=== PATIENT | male | born 1990 | race Caucasian/White ===

== ENCOUNTER → 2017-08-24 | Outpatient (CLI) | payer SELFPAY ==
--- NOTE | 2017-08-24 15:24 | P.HPBAR ---
Bariatric H&P - History & Physicial H&P Date: 08/24/17 History & Physicial: Visit/CC: Patient initial contact: Initial weight: Initial weight in pounds: Height: Initial BMI: Last weight: Current weight: Current weight in pounds: Current BMI: [place] body weight (based on NIH guidelines): Excess body weight loss: The patient is a 26 year-old M who presents for Bariatric Assessment. Patient presents today for lab band follow. He has not been seen in several years. Patient states that he has gained weight. He has a loss of restriction. Past Medical History Past Medical History: Asthma History of Any Multi-Drug Resistant Organisms: None Reported Past Surgical History: Bariatric Surgery Additional Past Surgical History / Comment(s): gastric lap band 2010 Past Anesthesia/Blood Transfusion Reactions: No Reported Reaction Additional Past Anesthesia/Blood Transfusion Reaction / Comm: NO transfusions to date Past Psychological History: No Psychological Hx Reported Smoking Status: Never smoker Past Alcohol Use History: Rare Past Drug Use History: None Reported Surgical - Exam - General well developed, no distress - Eyes PERRL - ENT normal pinna - Abdomen Abdomen: soft, non tender Bariatric Assessment & Plan Plan: The patient LAP-BAND was adjusted. He had 1 mL added to his band. He appears to have a leak of his LAP-BAND port. The patient's lap band fluid appeared to be less once it was instilled into the port. The patient states he has no insurance currently. I went over the procedure port placement with the patient. He'll contact me wish to have his port replaced. Bariatric Checklist Checklist: Plan: Checklist: EGD: 1. Hiatal hernia: 2. H. Pylori: HgbA1c: Vitamin D: Smoking: Never smoker Primary care physician referral: Psychiatry clearance: Cardiology clearance: Sleep study: Diet journal: VTE risk score: VTE risk level: Rehab needs at discharge:
[2017-08-24 15:29] VITALS: BP 126/70; PULSE 91; RESP 14; TEMP 98.2; BMI 61.4
== END | disposition home or self-care (01) ==
LOC: BARWHC3 14:51
PROVIDERS: ATTEND Surgery
DX: Z09 Encounter for follow-up examination after completed treatment for conditions other than malignant neoplasm (principal); R63.5 Abnormal weight gain; J45.909 Unspecified asthma, uncomplicated; Z98.84 Bariatric surgery status
CPT/HCPCS: 99202

== ENCOUNTER → 2020-02-13 | Outpatient (CLI) | payer BC ==
[2020-02-13 13:21] VITALS: BMI 67.4
[2020-02-13 13:24] VITALS: BP 136/86; PULSE 89; TEMP 98.3
--- NOTE | 2020-02-13 14:44 | P.HPBAR ---
Bariatric H&P - History & Physicial H&P Date: 02/13/20 History & Physicial: Visit/CC: follow up Patient initial contact: Initial weight: 208.652 kg Initial weight in pounds: 460.00 Height: 5 ft 6 in Initial BMI: 74.2 Last weight: 235 pounds. April 2015 Current weight: 189.602 kg Current weight in pounds: 418.00 Current BMI: 67.4 [place] body weight (based on NIH guidelines): 64.41 kg Excess body weight loss: 13.2% The patient is a 29 year-old M who presents for Bariatric Assessment. Patient presents today for bariatric follow-up. Patient has a LAP-BAND with a known broken port. He skin approximately 150 pounds his last visit. Patient is requesting conversion to sleeve gastrectomy and removal of LAP-BAND device. Past Medical History Past Medical History: Asthma History of Any Multi-Drug Resistant Organisms: None Reported Past Surgical History: Bariatric Surgery Additional Past Surgical History / Comment(s): gastric lap band 2010 Past Anesthesia/Blood Transfusion Reactions: No Reported Reaction Additional Past Anesthesia/Blood Transfusion Reaction / Comm: NO transfusions to date Past Psychological History: No Psychological Hx Reported Smoking Status: Never smoker Past Alcohol Use History: Rare Past Drug Use History: None Reported Surgical - Exam Vital Signs Temp Pulse BP 98.3 F 89 136/86 02/13/20 13:12 02/13/20 13:12 02/13/20 13:12 - General well developed, well nourished, no distress - Eyes PERRL - ENT normal pinna - Neck no masses - Respiratory normal expansion - Cardiovascular Rhythm: regular - Abdomen Abdomen: soft, non tender Bariatric Assessment & Plan Plan: Morbid obesity. Patient has a malfunctioning LAP-BAND with broken port. Patient requesting conversion sleeve yesterday. Patient be scheduled for EGD and an information seminar. He'll follow-up in 4 weeks. Bariatric Checklist Checklist: Plan: Checklist: EGD: 1. Hiatal hernia: 2. H. Pylori: HgbA1c: Vitamin D: Smoking: Never smoker Primary care physician referral: Dr. Woodard Psychiatry clearance: Cardiology clearance: Sleep study: Diet journal: VTE risk score: VTE risk level: Rehab needs at discharge:
== END | disposition home or self-care (01) ==
LOC: BARWHC3 12:51
PROVIDERS: ATTEND Surgery
DX: K31.89 Other diseases of stomach and duodenum (principal); E66.01 Morbid (severe) obesity due to excess calories; Z68.44 Body mass index [BMI] 60.0-69.9, adult
CPT/HCPCS: 99211

== ENCOUNTER 2020-06-28 09:34 | Day surgery (SDC) | payer BC ==
[2020-06-25 18:09] VITALS: BMI 59.8
[2020-06-28 10:34] VITALS: TEMP 96.3
[2020-06-28] MEDS: LACTATED RINGERS 1,000 ML IV SCH ×2 (10:38→11:07)
[2020-06-28] MEDS ORDERED: LIDOCAINE 1% (10MG/ML) FOR IV START INTRADERMA ONE (10:38)
[2020-06-28] MEDS ORDERED: PROPOFOL 10 MG/ML 20 ML VIAL IV ONE (11:09)
[2020-06-28] MEDS ORDERED: LIDOCAINE 1% INJ 10MG/ML (20 ML MDV) ONE (11:09)
--- NOTE | 2020-06-28 11:19 | P.GSHP ---
History of Present Illness H&P Date: 06/28/20 Chief Complaint: GERD, morbid obesity The 29-year-old male undergoing workup for sleeve gastric. Patient has completed some GERD. He is morbidly obese BMI of 67. Past Medical History Past Medical History: Asthma Additional Past Medical History / Comment(s): Asthma as child. Recent elevated blood pressure x1. History of Any Multi-Drug Resistant Organisms: None Reported Past Surgical History: Bariatric Surgery Additional Past Surgical History / Comment(s): EGD. Gastric lap band 2010 Past Anesthesia/Blood Transfusion Reactions: No Reported Reaction Additional Past Anesthesia/Blood Transfusion Reaction / Comment(s): (No transfusions to date). Awoke from surgery with broken blood vessels in face. Smoking Status: Never smoker - Past Family History Mother Family Medical History: No Reported History Medications and Allergies Home Medications Medication Instructions Recorded Confirmed Type No Known Home Medications 02/13/20 06/28/20 History Allergies Allergy/AdvReac Type Severity Reaction Status Date / Time Penicillins Allergy Severe Anaphylaxis Verified 06/28/20 10:29 Sulfa (Sulfonamide Allergy Severe Anaphylaxis Verified 06/28/20 10:29 Antibiotics) Surgical - Exam Vital Signs Temp Pulse Resp BP Pulse Ox 96.3 F L 94 20 128/81 97 06/28/20 10:31 06/28/20 10:31 06/28/20 10:31 06/28/20 10:31 06/28/20 10:31 - General well developed, well nourished, no distress - Eyes PERRL - ENT normal pinna - Neck no masses - Respiratory normal expansion - Cardiovascular Rhythm: regular - Abdomen Abdomen: soft, non tender Assessment and Plan Assessment: GERD, morbid obesity. We'll perform EGD.
--- NOTE | 2020-06-28 11:26 | P.OP ---
Date of Procedure: 06/28/20 Preoperative Diagnosis: Morbid obesity, GERD Postoperative Diagnosis: Morbid obesity, antral gastritis Procedure(s) Performed: EGD Anesthesia: MAC Surgeon: Paulo Clark Pathology: other (Antrum) Condition: stable Disposition: PACU Description of Procedure: The patient's placed on the endoscopy table in the lateral position. He received IV sedation. The gastroscope patient oropharynx passed in the esophagus and into the stomach. Scope then placed through the pylorus. The first and second portion duodenum appeared normal. Scope was then brought back the antrum this mildly inflamed. A biopsies performed. The scope was unretroflexed and remainder of the stomach appeared normal. Patient previous gastric LAP-BAND. There was no evidence of any inflammatory change her LAP- BAND. The GE junction was at 47 is. The distal esophagus appeared normal. The proximal esophagus normal. Scope was withdrawn for patient.
[2020-06-28 11:38] VITALS: RESP 16
[2020-06-28 11:56] VITALS: BP 109/74; PULSE 77
== END 2020-06-28 12:08 | disposition home or self-care (01) ==
LOC: ORWHC2ENDO 09:34
PROVIDERS: ATTEND Surgery
DX: K21.9 Gastro-esophageal reflux disease without esophagitis (principal); K29.50 Unspecified chronic gastritis without bleeding; J45.909 Unspecified asthma, uncomplicated; E66.01 Morbid (severe) obesity due to excess calories; Z68.44 Body mass index [BMI] 60.0-69.9, adult; Z98.84 Bariatric surgery status; Z88.0 Allergy status to penicillin; Z88.2 Allergy status to sulfonamides
CPT/HCPCS: 88305; 43239; J2001; J2704

== ENCOUNTER → 2020-07-09 | Outpatient (CLI) | payer BC ==
[2020-07-09 13:33] VITALS: BMI 69.2
[2020-07-09 14:03] VITALS: BP 145/88; PULSE 103; RESP 18; TEMP 98
--- NOTE | 2020-07-09 16:09 | P.HPBAR ---
Bariatric H&P - History & Physicial H&P Date: 07/09/20 History & Physicial: Visit/CC: presurgical visit Patient initial contact: Initial weight: 208.652 kg Initial weight in pounds: 460.00 Height: 5 ft 6 in Initial BMI: 74.2 Last weight: Current weight: 194.591 kg Current weight in pounds: 429.00 Current BMI: 69.2 [place] body weight (based on NIH guidelines): 64.41 kg Excess body weight loss: 9.7% The patient is a 29 year-old M who presents for Bariatric Assessment.patient presents today for presurgical consultation. He has been recently approved for removal of his LAP-BAND conversion sleeve gastrectomy. We went over the risks and benefits of the procedure. He understands the risks and possible gastric injury/perforation bleeding or scarring. Past Medical History Past Medical History: Asthma Additional Past Medical History / Comment(s): Asthma as child. Recent elevated blood pressure x1. History of Any Multi-Drug Resistant Organisms: None Reported Past Surgical History: Bariatric Surgery Additional Past Surgical History / Comment(s): EGD. Gastric lap band 2010 Past Anesthesia/Blood Transfusion Reactions: Postoperative Nausea & Vomiting (PONV) Additional Past Anesthesia/Blood Transfusion Reaction / Comm: (No transfusions to date). Awoke from surgery with broken blood vessels in face. Past Psychological History: No Psychological Hx Reported Smoking Status: Never smoker Past Alcohol Use History: Rare Past Drug Use History: None Reported - Past Family History Mother Family Medical History: No Reported History Surgical - Exam Vital Signs Temp Pulse Resp BP 98 F 103 H 18 145/88 07/09/20 14:00 07/09/20 14:00 07/09/20 14:00 07/09/20 14:00 - General well developed, well nourished, no distress - Eyes PERRL - ENT normal pinna - Neck no masses - Respiratory normal expansion - Cardiovascular Rhythm: regular - Abdomen Abdomen: soft, non tender Bariatric Assessment & Plan Plan: morbid obesity, BMI 69. Patient will be scheduled for removal of LAP-BAND and conversion sleeve gastrectomy Bariatric Checklist Checklist: Plan: Checklist: EGD: 1. Hiatal hernia: 2. H. Pylori: HgbA1c: Vitamin D: Smoking: Never smoker Primary care physician referral: Dr. Woodard Psychiatry clearance: Cardiology clearance: Sleep study: Diet journal: VTE risk score: VTE risk level: Rehab needs at discharge:
== END ==
LOC: BARWHC3 08:57
PROVIDERS: ATTEND Surgery
DX: Z01.818 Encounter for other preprocedural examination (principal); E66.01 Morbid (severe) obesity due to excess calories; J45.909 Unspecified asthma, uncomplicated; Z68.44 Body mass index [BMI] 60.0-69.9, adult; Z98.84 Bariatric surgery status
CPT/HCPCS: 97804; 99211

== ENCOUNTER → 2020-07-10 | Outpatient (CLI) | payer BC ==
[2020-07-10 21:57] LABS: HCT 45.9 % (39.6-50.0); HGB 14.8 g/dL (13.0-17.0); MCH 28.2 pg (27.0-32.0); MCHC 32.2 g/dL (32.0-37.0); MCV 87.6 fL (80.0-97.0); Mean Platelet Volume 11.7 fL (9.5-12.2); Platelet Count 200 X 10*3/uL (140-440); RBC 5.24 X 10*6/uL (4.40-5.60); RDW 12.8 % (11.5-14.5); WBC 8.28 X 10*3/uL (4.50-10.00)
[2020-07-10 23:36] LABS: Albumin 4.2 g/dL (3.80-4.90); Anion Gap 8.1 mmol/L (4.00-12.00); Calcium 9.5 mg/dL (8.7-10.3); Carbon Dioxide 26.9 mmol/L (21.6-31.8); Globulin 2.1 g/dL (1.6-3.3); Non-African American GFR(CKD) 102.7 (60.0-200.0); Potassium 4.7 mmol/L (3.5-5.5); Total Bilirubin 0.5 mg/dL (0.2-1.2); Total Protein 6.3 g/dL (6.2-8.2)
[2020-07-10 23:45] LABS: Folate, Serum 9.5 ng/mL
[2020-07-10 23:46] LABS: Hemoglobin A1C 5.4 % (4.0-6.0)
[2020-07-11 18:25] LABS: Hepatitis A Antibody IgM Non-Reactive (Non-Reactive); Hepatitis B Core IgM Non-Reactive (Non-Reactive); Hepatitis B Surface Antigen Non-Reactive (Non-Reactive); Hepatitis C IgG Antibody Non-Reactive (Non-Reactive)
== END | disposition home or self-care (01) ==
LOC: LABWHC1 12:27
PROVIDERS: ATTEND Surgery
DX: E88.81 Metabolic syndrome and other insulin resistance (principal); E66.01 Morbid (severe) obesity due to excess calories; E55.9 Vitamin D deficiency, unspecified
CPT/HCPCS: 36415; 80053; 80074; 82306; 82607; 82746; 83036; 84425; 85027; 93005

== ENCOUNTER → 2020-08-09 | Outpatient (CLI) | payer BC ==
--- NOTE | 2020-08-10 08:00 | ECHOF ---
Referral Reason:R07.9 chest pain, R94.31 abn ekg MEASUREMENTS -------- HEIGHT: 170.2 cm WEIGHT: 186.4 kg BP: IVSd: 1.0 cm (0.6 - 1.1) LVIDd: 5.1 cm (3.9 - 5.3) LVPWd: 1.1 cm (0.6 - 1.1) IVSs: 1.4 cm LVIDs: 3.8 cm LVPWs: 1.5 cm Ao Diam: 3.2 cm (2.0 - 3.7) LA Diam: 2.9 cm (2.7 - 3.8) MV EXCURSION: 16.399 mm (> 18.000) MV EF SLOPE: 95 mm/s (70 - 150) EPSS: 1.5 cm MV E Mike: 0.68 m/s MV DecT: 182 ms MV A Mike: 0.27 m/s MV E/A Ratio: 2.54 RAP: 5.00 mmHg RVSP: 9.27 mmHg FINDINGS -------- Sinus rhythm. This was a technically difficult study with suboptimal views. The left ventricular size is normal. Left ventricular wall thickness is normal. Overall left vent ricular systolic function is mildly impaired with, an EF between 45 - 50 %. The RV was not well visualized. The left atrium was not well visualized. The right atrium was not well visualized. Lumason used The aortic valve was not well visualized. The mitral valve was not well visualized. The tricuspid valve was not well visualized. The pulmonic valve was not well visualized. There is no pericardial effusion. CONCLUSIONS -------- 1. This was a technically difficult study with suboptimal views. 2. Left ventricular wall thickness is normal. 3. Overall left ventricular systolic function is mildly impaired with, an EF between 45 - 50 %. 4. The left atrium was not well visualized. 5. The aortic valve was not well visualized. 6. The mitral valve was not well visualized. 7. The tricuspid valve was not well visualized. 8. There is no pericardial effusion. [employer] SUPERVISOR: Morenita Logan [facility]
== END | disposition home or self-care (01) ==
LOC: RADECHMAIN 15:08
PROVIDERS: ATTEND Internal Medicine
DX: R94.31 Abnormal electrocardiogram [ECG] [EKG] (principal); R07.9 Chest pain, unspecified
CPT/HCPCS: 93306; Q9950

== ENCOUNTER → 2020-08-27 | Outpatient (CLI) | payer BC ==
[2020-08-27 13:28] LABS: Basophils % (A) 1 %; Eosinophils # (A) 0.1 k/uL (0-0.7); Eosinophils % (A) 2 %; HCT 44.3 % (39.0-53.0); HGB 15.3 gm/dL (13.0-17.5); Lymphocytes # (A) 1.3 k/uL (1.0-4.8); Lymphocytes % (A) 25 %; MCH 29.3 pg (25.0-35.0); MCHC 34.5 g/dL (31.0-37.0); Mean Platelet Volume 8.7; Monocytes # (A) 0.4 k/uL (0-1.0); Monocytes % (A) 7 %; Neutrophils # (A) 3.3 k/uL (1.3-7.7); Neutrophils % (A) 63 %; Platelet Count 178 k/uL (150-450); RBC 5.21 m/uL (4.30-5.90); RDW 13.5 % (11.5-15.5); WBC 5.2 k/uL (3.8-10.6)
[2020-08-27 13:47] LABS: ALT 60 U/L (4-49); AST 43 U/L (17-59); African American GFR (CKD) >90 (>60 ml/min/1.73 sqM); Albumin 4.2 g/dL (3.5-5.0); Alkaline Phosphatase 61 U/L (38-126); Anion Gap 8 mmol/L; Blood Urea Nitrogen 9 mg/dL (9-20); Calcium 9.5 mg/dL (8.4-10.2); Carbon Dioxide 26 mmol/L (22-30); Chloride 106 mmol/L (98-107); Glucose 83 mg/dL (74-99); Non-African American GFR(CKD) >90 (>60 ml/min/1.73 sqM); Potassium 4.3 mmol/L (3.5-5.1); Sodium 140 mmol/L (137-145); Total Bilirubin 0.8 mg/dL (0.2-1.3); Total Protein 6.9 g/dL (6.3-8.2)
== END | disposition home or self-care (01) ==
LOC: LABPAT 11:45
PROVIDERS: ATTEND Surgery
DX: Z01.812 Encounter for preprocedural laboratory examination (principal)
CPT/HCPCS: 36415; 80053; 85025

== ENCOUNTER 2020-08-28 07:45 | Inpatient (IN) | payer BC ==
[~2020-08-28 07:45] MED LIST: CLINDAMYCIN 900 MG in DEXTROSE 5% IN WATER 50 ML IVPB PRN; DEXAMETHASONE SOD PHOSPHATE 4 MG/ML 1 ML VIAL IV ONE; ENOXAPARIN 40 MG/0.4 ML SYRINGE SQ PRN; GENTAMICIN 560 MG in SODIUM CHLORIDE 0.9% 100 ML IVPB PRN; ONDANSETRON 4 MG/2 ML VIAL IVP ONE
[2020-08-28] MEDS ORDERED: LIDOCAINE 1% (10MG/ML) FOR IV START INTRADERMA ONE (09:06)
[2020-08-28] MEDS: LACTATED RINGERS 1,000 ML IV SCH ×2 (09:06→19:51)
[2020-08-28] MEDS ORDERED: SCOPOLAMINE 1.5MG/72HR PATCH TRANSDERM ONE (09:13)
[2020-08-28] MEDS ORDERED: MIDAZOLAM 2 MG/2 ML VIAL IVP ONE (10:10)
[2020-08-28] MEDS ORDERED: fentaNYL (PF) 50 MCG/ML 2 ML AMP IVP ONE (10:18)
--- NOTE | 2020-08-28 10:30 | P.GSHP ---
History of Present Illness H&P Date: 08/28/20 Chief Complaint: Morbid obesity This a 29-year-old male who presents today for removal LAP-BAND conversion sleeve gastrectomy. Patient is a malfunction of his LAP-BAND. He is unable have an adjusted. He is aware the risks of surgery including conversion to the open procedure injury to the stomach liver spleen Past Medical History Past Medical History: Asthma Additional Past Medical History / Comment(s): Asthma as child. Recent elevated blood pressure x1. History of Any Multi-Drug Resistant Organisms: None Reported Past Surgical History: Bariatric Surgery Additional Past Surgical History / Comment(s): EGD. Gastric lap band 2010 Past Anesthesia/Blood Transfusion Reactions: Postoperative Nausea & Vomiting (PONV) Additional Past Anesthesia/Blood Transfusion Reaction / Comment(s): (No transfusions to date). Awoke from surgery with broken blood vessels in face. Smoking Status: Never smoker - Past Family History Mother Family Medical History: No Reported History Medications and Allergies Home Medications Medication Instructions Recorded Confirmed Type No Known Home Medications 02/13/20 08/28/20 History Allergies Allergy/AdvReac Type Severity Reaction Status Date / Time Penicillins Allergy Severe Anaphylaxis Verified 08/24/20 15:59 Sulfa (Sulfonamide Allergy Severe Anaphylaxis Verified 08/24/20 15:59 Antibiotics) Fish Containing Products Allergy Anaphylaxis Verified 08/24/20 15:28 [Fish] grape juice Allergy Anaphylaxis Uncoded 08/24/20 15:28 Surgical - Exam Vital Signs Temp Pulse Resp BP Pulse Ox 97.0 F L 87 16 142/74 95 08/28/20 09:04 08/28/20 09:04 08/28/20 09:04 08/28/20 09:04 08/28/20 09:04 BMI 61 - General well developed ( ) - Eyes PERRL - ENT normal pinna - Neck no masses - Respiratory normal expansion - Cardiovascular Rhythm: regular - Abdomen Abdomen: soft, non tender Assessment and Plan Assessment: Morbid obesity We'll perform of LAP-BAND and conversion sleeve gastrectomy.
[2020-08-28] MEDS ORDERED: ROPIVACAINE 5 MG/ML 30 ML VIAL ONE (10:55)
[2020-08-28] MEDS ORDERED: PROPOFOL 10 MG/ML 20 ML VIAL IV ONE (10:55)
[2020-08-28] MEDS ORDERED: NEOSTIGMINE 1 MG/ML 10 ML VIAL ONE (10:55)
[2020-08-28] MEDS ORDERED: KETAMINE 10 MG/ML 20 ML VIAL ONE (10:55)
[2020-08-28] MEDS ORDERED: MIDAZOLAM 2 MG/2 ML VIAL ONE (10:55)
[2020-08-28] MEDS ORDERED: ROCURONIUM 10 MG/ML (5 ML VIAL) IV ONE (10:55)
[2020-08-28] MEDS ORDERED: LIDOCAINE 1% INJ 10MG/ML (20 ML MDV) ONE (10:55)
[2020-08-28] MEDS ORDERED: GLYCOPYRROLATE 0.2 MG/ML 2 ML VIAL ONE (10:55)
[2020-08-28] MEDS ORDERED: LIDOCAINE 1%-EPI 1:100,000 20 ML VIAL ONE (10:55)
[2020-08-28] MEDS ORDERED: SUCCINYLCHOLINE CHLORIDE VIAL 200 MG/10 ML VIAL IV ONE (10:55)
[2020-08-28] MEDS ORDERED: fentaNYL (PF) 50 MCG/ML 2 ML AMP ONE (10:55)
[2020-08-28] MEDS ORDERED: BUPIVACAINE-EPI 0.5%-1:200,000 10 ML VIAL SQ ONE (11:37)
[2020-08-28] MEDS ORDERED: LACTATED RINGERS 1,000 ML IV ONE (12:10)
[2020-08-28] MEDS ORDERED: SIMETHICONE 40 MG/0.6 ML DROPS 2,000 MG/30 ML BOTTLE PO PRN (12:49)
[2020-08-28] MEDS ORDERED: HYDROcodone/APAP 15 ML SOLUTION PO PRN (12:49)
[2020-08-28] MEDS ORDERED: NALOXONE 0.4 MG/ML 1 ML VIAL IV PRN (12:49)
[2020-08-28] MEDS ORDERED: HYDROmorphone 1 MG/ML 1 ML SYRINGE IVP PRN (12:49)
[2020-08-28] MEDS ORDERED: ONDANSETRON 4 MG/2 ML VIAL IVP PRN (12:49)
[2020-08-28] MEDS ORDERED: diphenhydrAMINE 50 MG/ML 1 ML VIAL IVP PRN (12:49)
--- NOTE | 2020-08-28 12:49 | P.OP ---
Date of Procedure: 08/28/20 Preoperative Diagnosis: Morbid obesity, BMI 61 Postoperative Diagnosis: Morbid obesity, BMI 61 Procedure(s) Performed: Laparoscopic removal LAP-BAND system Laparoscopic sleeve gastrectomy Lysis of adhesions Anesthesia: GENEVIEVE Surgeon: Paulo Clark Estimated Blood Loss (ml): 25 Pathology: other (Stomach) Condition: stable Disposition: PACU Description of Procedure: The patient was placed on the operating room table in the supine position. She received general anesthesia and then was placed in dorsal lithotomy position. Her abdomen was prepped and draped in sterile fashion. The skin incision sites were anesthetized 1% local Xylocaine. And then the skin was incised with an 11 blade in the left lateral positionover the LAP-BAND port site. Using blunt and sharp dissection with cautery the LAP-BAND port was dissected free to pathology. . Using a blade less trocar under direct visualization the peritoneal cavity was entered. The abdomen was insufflated and then a 5 mm laparoscope was placed into the peritoneal cavity. A 5 mm trocar was placed in the right epigastric, and right lateral position. A 15 mm trocar was placed in the supra-umbilical position and another 5 mm trocar was placed in the left lateral position. The left lateral lobe of the liver was retracted. The stomach was visualized. the LAP-BAND device was then dissected free. The anterior gastric wall plication was taken down. The LAP-BAND was then cut and withdrawn from the stomach and extracted through the 15 mm trocar site.The greater curvature of the stomach was then dissected using the Harmonic scissors. The dissection occurred approximately 5 cm from the pylorus to the level of the left [place]eva. There was no hiatal hernia seen. At this point a 40-[place] Island[place] bougie dilator was placed the oropharynx and passed into the esophagus and into the stomach by the CONTRACT MANAGEMENT SPECIALIST. The sleeve gastrectomy was performed by using the powered echelon stapler with a seam guard buttress material. Sequential firings of the stapler were performed. The gastric remnant was then brought out through the 15 mm trocar site. The dilator was withdrawn. And a orogastric tube was replaced into the stomach. The stomach was insufflated with 200 mL of methylene blue normal saline. There was no evidence of extravasation. The abdomen was irrigated there is no bleeding seen. The Rene-Mike device was used to close the 15 mm trocar with 0 Vicryl. Skin was closed with interrupted 3-0 Monocryl sutures once the trochars withdrawn. Dermabond dressing was applied. Patient was sent to recovery in stable condition.
[2020-08-28] MEDS: HYDROmorphone 0.5 MG/0.5 ML SYRINGE IVP PRN ×4 (13:12→16:30)
[2020-08-28] MEDS ORDERED: GLYCOPYRROLATE 0.2 MG/ML 2 ML VIAL IVP ONE (13:31)
[2020-08-28] MEDS ORDERED: ceFAZolin 3 GM in SODIUM CHLORIDE 0.9% 100 ML IVPB SCH (16:00)
[2020-08-28] MEDS: KETOROLAC 15 MG/ML 1 ML VIAL IVP SCH ×2 (17:36→23:42)
--- NOTE | 2020-08-28 18:15 | P.CONS ---
History of Present Illness - Reason for Consult Preoperative complication management - History of Present Illness 29-year-old male was admitted for elective laparoscopic sleeve gastrectomy. Patient is morbidly obese with BMI of 60. Patient denied any fever chills patient never had any sleep study. Patient did not pass gas yet patient is urinating well and relating well at this time. Patient has green urine which she is concerned about patient did receive propofol in the operating room. Patient denied any symptoms of urinary tract infection including dysuria or increased urinary frequency. Surgical site areas appear to be clean Review of Systems REVIEW OF SYSTEMS: CONSTITUTIONAL: No fever, no malaise, no fatigue. HEENT: No recent visual problems or hearing problems. Denied any sore throat. CARDIOVASCULAR: No chest pain, orthopnea, PND, no palpitations, no syncope. PULMONARY: No shortness of breath, no cough, no hemoptysis. GASTROINTESTINAL: No diarrhea, no nausea, no vomiting, no abdominal pain. NEUROLOGICAL: No headaches, no weakness, no numbness. HEMATOLOGICAL: Denies any bleeding or petechiae. GENITOURINARY: Denies any burning micturition, frequency, or urgency. MUSCULOSKELETAL/RHEUMATOLOGICAL: Denies any joint pain, swelling, or any muscle pain. ENDOCRINE: Denies any polyuria or polydipsia. The rest of the 14-point review of systems is negative. Past Medical History Past Medical History: Asthma Additional Past Medical History / Comment(s): Asthma as child. Recent elevated blood pressure x1. History of Any Multi-Drug Resistant Organisms: None Reported Past Surgical History: Bariatric Surgery Additional Past Surgical History / Comment(s): EGD. Gastric lap band 2010 Past Anesthesia/Blood Transfusion Reactions: Postoperative Nausea & Vomiting (PONV) Additional Past Anesthesia/Blood Transfusion Reaction / Comm: (No transfusions to date). Awoke from surgery with broken blood vessels in face. Past Psychological History: No Psychological Hx Reported Smoking Status: Never smoker Past Alcohol Use History: Rare Past Drug Use History: None Reported - Past Family History Mother Family Medical History: No Reported History Medications and Allergies Home Medications Medication Instructions Recorded Confirmed Type No Known Home Medications 02/13/20 08/28/20 History Allergies Allergy/AdvReac Type Severity Reaction Status Date / Time Penicillins Allergy Severe Anaphylaxis Verified 08/24/20 15:59 Sulfa (Sulfonamide Allergy Severe Anaphylaxis Verified 08/24/20 15:59 Antibiotics) Fish Containing Products Allergy Anaphylaxis Verified 08/24/20 15:28 [Fish] grape juice Allergy Anaphylaxis Uncoded 08/24/20 15:28 Physical Exam Vitals: Vital Signs Temp Pulse Resp BP Pulse Ox 08/28/20 17:30 99.7 F H 74 18 125/68 93 L 08/28/20 16:30 70 14 143/65 93 L 08/28/20 16:00 83 16 139/82 96 08/28/20 15:30 84 16 134/66 95 08/28/20 15:00 74 16 135/77 95 08/28/20 14:30 79 16 159/72 92 L 08/28/20 14:15 78 16 156/70 92 L 08/28/20 14:00 87 16 150/68 92 L 08/28/20 13:45 96 16 146/74 97 08/28/20 13:30 103 H 16 146/68 97 08/28/20 13:15 73 16 163/77 96 08/28/20 13:00 69 16 153/89 99 08/28/20 12:50 97.6 F 71 16 142/70 97 08/28/20 10:22 68 16 139/70 99 08/28/20 09:04 97.0 F L 87 16 142/74 95 Intake and Output 08/28/20 08/28/20 08/28/20 06:59 14:59 22:59 Intake Total 1370 Output Total 25 Balance 1345 Intake: IV 1370 Output: Estimated Blood Loss 25 Other: Weight 174 kg 174 kg PHYSICAL EXAMINATION: GENERAL: The patient is alert and oriented x3, not in any acute distress. Morbidly obese HEENT: Pupils are round and equally reacting to light. EOMI. No scleral icterus. No conjunctival pallor. Normocephalic, atraumatic. No pharyngeal erythema. No thyromegaly. CARDIOVASCULAR: S1 and S2 present. No murmurs, rubs, or gallops. PULMONARY: Chest is clear to auscultation, no wheezing or crackles. ABDOMEN: Soft, nontender, nondistended, sluggish bowel sounds. No palpable organomegaly. Surgical site areas are clean MUSCULOSKELETAL: No joint swelling or deformity. EXTREMITIES: No cyanosis, clubbing, or pedal edema. NEUROLOGICAL: Gross neurological examination did not reveal any focal deficits. SKIN: No rashes. Assessment and Plan Plan: -laparoscopic sleeve gastrectomy: Patient pain is well-controlled patient has a mild low-grade fever without any clinical evidence of sepsis no further intervention is necessary patient received gentamicin and clindamycin as perioperative antibiotics. -Green colored urine probably secondary to propofol no further intervention is necessary patient clinically doesn't have any UTI symptoms -Asthma without any acute exacerbation -Morbid obesity -DVT prophylaxis as per primary service
[2020-08-28] MEDS ORDERED: CLINDAMYCIN 900 MG in DEXTROSE 5% IN WATER 50 ML IVPB ONE ×2 (19:00)
[2020-08-28] MEDS: 0.9% NACL WITH KCL 20 MEQ/L 1,000 ML IV SCH (19:44)
[2020-08-28] MEDS: ALBUTEROL NEBULIZED 2.5 MG/3 ML INHALATION SCH ×2 (19:58→20:41)
[2020-08-28] MEDS ORDERED: BENZOCAINE/MENTHOL LOZENG 1 EACH LOZENGE MUCOUS MEM PRN (19:59)
[2020-08-28] MEDS: FAMOTIDINE 20 MG TAB PO SCH (20:24)
[2020-08-29] MEDS: KETOROLAC 15 MG/ML 1 ML VIAL IVP SCH ×2 (05:40→11:14)
[2020-08-29] MEDS: 0.9% NACL WITH KCL 20 MEQ/L 1,000 ML IV SCH ×2 (05:40→08:01)
[2020-08-29] MEDS: ALBUTEROL NEBULIZED 2.5 MG/3 ML INHALATION SCH ×3 (07:55→16:16)
[2020-08-29] MEDS: FAMOTIDINE 20 MG TAB PO SCH (07:59)
[2020-08-29] MEDS ORDERED: 1: MVI, ADULT NO.4 WITH VIT K 10 ML, THIAMINE 100 MG, FOLIC ACID 1 MG, POTASSIUM CHLORID IV SCH ×6 (08:00)
[2020-08-29 08:48] VITALS: BP 129/80; PULSE 76; RESP 16; TEMP 98
[2020-08-29] MEDS ORDERED: ENOXAPARIN 40 MG/0.4 ML SYRINGE SQ SCH (09:00)
[2020-08-29 09:58] LABS: Basophils # (A) 0.01 X 10*3/uL (0.00-0.10); Basophils % (A) 0.1 %; Eosinophils # (A) 0.05 X 10*3/uL (0.04-0.35); Eosinophils % (A) 0.6 %; HCT 43.4 % (39.6-50.0); Lymphocytes # (A) 1.39 X 10*3/uL (0.90-5.00); MCH 28.4 pg (27.0-32.0); MCHC 32.3 g/dL (32.0-37.0); Mean Platelet Volume 12.2 fL (9.5-12.2); Monocytes # (A) 0.78 X 10*3/uL (0.20-1.00); Monocytes % (A) 10.1 %; Neutrophils # (A) 5.46 X 10*3/uL (1.80-7.70); Neutrophils % (A) 70.9 %; Platelet Count 197 X 10*3/uL (140-440); RBC 4.93 X 10*6/uL (4.40-5.60); RDW 13.5 % (11.5-14.5); WBC 7.71 X 10*3/uL (4.50-10.00)
[2020-08-29 10:22] LABS: African American GFR (CKD) 135.2 (60.0-200.0); Anion Gap 10.9 mmol/L (4.00-12.00); Calcium 9.4 mg/dL (8.7-10.3); Carbon Dioxide 25.1 mmol/L (21.6-31.8); Magnesium 2.1 mg/dL (1.5-2.4); Non-African American GFR(CKD) 116.6 (60.0-200.0); Phosphorus 3.3 mg/dL (2.4-5.1); Potassium 4.5 mmol/L (3.5-5.5)
--- NOTE | 2020-08-29 10:57 | FL ---
EXAMINATION TYPE: FL UGI DATE OF EXAM: 08/29/2020 COMPARISON: Esophagus 02/25/2011 CLINICAL HISTORY: Morbid Obesity, lap band placed earlier today. TECHNIQUE: Limited esophagram is performed utilizing 4 oz of Omnipaque 350. A total of 39 seconds of fluoroscopic time was utilized during procedure. COMPARISON: None. FINDINGS: The patient swallowed contrast without difficulty or delay. Esophageal peristalsis and mo tility are within normal limits. There is good flow of contrast along the diaphragmatic hiatus into proximal stomach and subsequent flow into gastric sleeve. There is good flow from distal sleeve into pylorus and duodenal sweep. Patient remains asymptomatic. There is no evidence of contrast extravasat ion to suggest leak. IMPRESSION: No evidence of leak or significant obstruction status post recent gastric sleeve surgery.
[2020-08-29 13:34] VITALS: BMI 60.0
--- NOTE | 2020-08-29 14:03 | P.ANPRN ---
Procedure Note - Anesthesia - Nerve Block Performed Bilateral Erector Spinae Single Time Out Performed: Yes Date of Procedure: 08/28/20 Procedure Start Time: : Procedure Stop Time: : Location of Patient: PreOp Indication: Acute Post-Operative Pain, Requested by Surgeon Sedation Type: Sedate with meaningful contact maintained Preparation: Sterile Prep Position: Prone Needle Types: Pajunk Needle Gauge: 21 Ultrasound used to visualize needle placement: Yes Ultrasound used to observe medication spread: Yes Blood Aspirated: No Pain Paresthesia on Injection Noted: No Resistance on Injection: Normal Image Stored and Saved: Yes Events: Uneventful and Well Tolerated (Ropivacaine 0.5% 15 mL plus Xylocaine 1% with epi 15 mL given bilaterally at T10)
--- NOTE | 2020-08-29 15:29 | P.DS ---
Providers Date of admission: 08/28/20 08:12 Expected date of discharge: 08/29/20 Attending physician: Paulo Clark Consults: 08/28/20 12:49 Consult Physician Routine Consulting Provider: Ino Valladares Consult Reason/Comments: med manage Do you want consulting provider notified?: Yes Primary care physician: Vance Aviles Hospital Course: Discharge diagnosis 1. Morbid obesity status post laparoscopic removal of lap band system, laparoscopic sleeve gastrectomy and lysis of adhesions Hospital course This is a 29-year-old male with a known history of morbid obesity. He is status post removal of lap band system, laparoscopic sleeve gastrectomy and lysis of adhesions. Patient tolerated surgery well. Upper GI showed no evidence of leak or obstruction. He is tolerating bariatric clear liquid diet. He is passing gas. He has been up and ambulating. He is afebrile. He is urinating without difficulty. He is stable for discharge. Please refer to chart for any further details. Physician Cooler Service Supervisor note has been reviewed by physician. Signing provider agrees with the documented findings, assessment, and plan of care. Patient Condition at Discharge: Stable Plan - Discharge Summary Discharge Rx Participant: Yes New Discharge Prescriptions: New bisacodyL [Dulcolax] 5 mg PO DAILY PRN #10 tablet. PRN Reason: Constipation Simethicone 40 mg/0.6 ml Drops [Mylicon Drops] 40 mg PO PCHS PRN #30 ml PRN Reason: Gas Omeprazole [PriLOSEC] 40 mg PO DAILY #30 capsule. HYDROcodone/APAP [[place]umm[place] Elixir 7.5-325Mg/15Ml] 15 ml PO Q6HR PRN #180 ml PRN Reason: Pain Ondansetron Odt [Zofran Odt] 4 mg PO Q8HR PRN #9 tab PRN Reason: Nausea Discharge Medication List HYDROcodone/APAP [[place] Elixir 7.5-325Mg/15Ml] 15 ml PO Q6HR PRN #180 ml 08/29/20 [Rx] Omeprazole [PriLOSEC] 40 mg PO DAILY #30 capsule. 08/29/20 [Rx] Ondansetron Odt [Zofran Odt] 4 mg PO Q8HR PRN #9 tab 08/29/20 [Rx] Simethicone 40 mg/0.6 ml Drops [Mylicon Drops] 40 mg PO PCHS PRN #30 ml 08/29/20 [Rx] bisacodyL [Dulcolax] 5 mg PO DAILY PRN #10 tablet. 08/29/20 [Rx] [facility] [place] [place] [facility] [place] [facility] Patient Instructions/Handouts: Nutrition after Bariatric Surgery (DC), Laparoscopic Sleeve Gastrectomy (DC) Activity/Diet/Wound Care/Special Instructions: No driving while taking [place] No lifting over 10 pounds You may shower. No soaking or tub baths 2 weeks Very light activity until you are reevaluated at your follow up appointment with your surgeon No straws or carbonated beverages Discharge Disposition: HOME SELF-CARE
--- NOTE | 2020-08-29 16:49 | P.PN ---
Subjective Patient is clinical doing well passing gas is being discharged today Objective - Vital Signs Vital signs: Vital Signs Temp 98 F 08/29/20 08:00 Pulse 76 08/29/20 08:00 Resp 16 08/29/20 08:00 BP 129/80 08/29/20 08:00 Pulse Ox 99 08/29/20 08:00 Intake & Output 08/28/20 08/29/20 08/29/20 18:59 06:59 18:59 Intake Total 1370 800 Output Total 25 800 Balance 1345 -800 800 Weight 174 kg 174 kg Intake: IV 1370 Intake, IV Titration 800 Amount Mvi, Adult No.4 with Vit 800 K 10 ml Thiamine 100 mg Folic Acid 1 mg Potassium Chloride 20 meq In Sodium Chloride 0.9% 1, 000 ml @ 100 mls/hr IV . BY DURATION [facility] Rx#: [id number] Output: Urine 800 Estimated Blood Loss 25 - Exam PHYSICAL EXAMINATION: GENERAL: The patient is alert and oriented x3, not in any acute distress. Morbidly obese HEENT: Pupils are round and equally reacting to light. EOMI. No scleral icterus. No conjunctival pallor. Normocephalic, atraumatic. No pharyngeal erythema. No thyromegaly. CARDIOVASCULAR: S1 and S2 present. No murmurs, rubs, or gallops. PULMONARY: Chest is clear to auscultation, no wheezing or crackles. ABDOMEN: Soft, nontender, nondistended, sluggish bowel sounds. No palpable organomegaly. Surgical site areas are clean MUSCULOSKELETAL: No joint swelling or deformity. EXTREMITIES: No cyanosis, clubbing, or pedal edema. NEUROLOGICAL: Gross neurological examination did not reveal any focal deficits. SKIN: No rashes. - Labs CBC & Chem 7: 08/29/20 05:55 08/29/20 05:55 Assessment and Plan Plan: -laparoscopic sleeve gastrectomy: Patient pain is well-controlled, patient is clinically doing well is being discharged today doesn't have any leukocytosis no dense of infection at this time -Green colored urine probably secondary to propofol , this is resolved -Asthma without any acute exacerbation -Morbid obesity -DVT prophylaxis as per primary service
== END 2020-08-29 16:25 | disposition home or self-care (01) | DRG 327 ==
LOC: 2ORMAIN 08:12 → 4SSUR 16:57
PROVIDERS: ADMIT Surgery; ATTEND Surgery
PROC: 0DB64Z3 Excision of Stomach, Percutaneous Endoscopic Approach, Vertical (ICD-10-PCS; principal; 2020-08-28 10:05)
PROC: 0DP64CZ Removal of Extraluminal Device from Stomach, Percutaneous Endoscopic Approach (ICD-10-PCS; principal; 2020-08-28 10:05)
DX: K95.09 Other complications of gastric band procedure (principal); Z68.44 Body mass index [BMI] 60.0-69.9, adult; E66.01 Morbid (severe) obesity due to excess calories; Z20.822 Contact with and (suspected) exposure to COVID-19; J45.909 Unspecified asthma, uncomplicated; Z88.0 Allergy status to penicillin; Z88.2 Allergy status to sulfonamides; Z91.018 Allergy to other foods; Y84.8 Other medical procedures as the cause of abnormal reaction of the patient, or of later complication, without mention of misadventure at the time of the procedure
CPT/HCPCS: 64999; 74240; 76942; 80051; 82310; 82565; 83735; 84100; 84520; 85025; 87635; 88307; 94640

== ENCOUNTER → 2020-09-03 | Outpatient (CLI) | payer BC ==
[2020-09-03 14:29] VITALS: BP 135/80; PULSE 90; RESP 18; TEMP 97.7; BMI 61.0
--- NOTE | 2020-09-03 15:43 | P.HPBAR ---
Bariatric H&P - History & Physicial H&P Date: 09/03/20 History & Physicial: Visit/CC: follow up / 1 week Patient initial contact: Initial weight: 208.652 kg Initial weight in pounds: 460.00 Height: 5 ft 6 in Initial BMI: 74.2 Last weight: Current weight: 171.458 kg Current weight in pounds: 378.00 Current BMI: 61.0 [place] body weight (based on NIH guidelines): 64.41 kg Excess body weight loss: 25.7% The patient is a 29 year-old M who presents for Bariatric Assessment. Patient resents today for sleeve gastrectomy fall. He is also a 12 pounds. He feels well. He's had some minimal GERD. Past Medical History Past Medical History: Asthma Additional Past Medical History / Comment(s): Asthma as child. Recent elevated blood pressure x1. History of Any Multi-Drug Resistant Organisms: None Reported Past Surgical History: Bariatric Surgery Additional Past Surgical History / Comment(s): EGD. Gastric lap band 2011 lap band removed and sleeve gastrectomy 08-28-20 Past Anesthesia/Blood Transfusion Reactions: Postoperative Nausea & Vomiting (PONV) Additional Past Anesthesia/Blood Transfusion Reaction / Comm: (No transfusions to date). Awoke from surgery with broken blood vessels in face. Past Psychological History: No Psychological Hx Reported Smoking Status: Never smoker Past Alcohol Use History: Rare Past Drug Use History: None Reported - Past Family History Mother Family Medical History: No Reported History Surgical - Exam Vital Signs Temp Pulse Resp BP 97.7 F 90 18 135/80 09/03/20 14:20 09/03/20 14:20 09/03/20 14:20 09/03/20 14:20 - General well developed, well nourished, no distress - Eyes PERRL - ENT normal pinna - Neck no masses - Respiratory normal expansion - Cardiovascular Rhythm: regular - Abdomen Abdomen: soft, non tender Bariatric Assessment & Plan Plan: Status post sleeve gastrectomy. Patient's doing quite well. He'll follow-up in 2 weeks. Bariatric Checklist Checklist: Plan: Checklist: EGD: 1. Hiatal hernia: 2. H. Pylori: HgbA1c: Vitamin D: Smoking: Never smoker Primary care physician referral: Dr. Woodard Psychiatry clearance: Cardiology clearance: Sleep study: Diet journal: VTE risk score: VTE risk level: Rehab needs at discharge:
== END | disposition home or self-care (01) ==
LOC: BARWHC3 13:53
PROVIDERS: ATTEND Surgery
DX: E66.01 Morbid (severe) obesity due to excess calories (principal); Z71.3 Dietary counseling and surveillance; J45.909 Unspecified asthma, uncomplicated; Z98.84 Bariatric surgery status; Z68.44 Body mass index [BMI] 60.0-69.9, adult
CPT/HCPCS: 99211

== ENCOUNTER → 2020-09-24 | Outpatient (CLI) | payer BC ==
[2020-09-24 14:00] VITALS: BP 125/89; PULSE 87; RESP 16; TEMP 98.2; BMI 58.1
[2020-09-24 15:49] LABS: HCT 47.1 % (39.0-53.0); MCH 27.4 pg (25.0-35.0); MCHC 31.8 g/dL (31.0-37.0); MCV 86.2 fL (80.0-100.0); Mean Platelet Volume 8.9; Platelet Count 179 k/uL (150-450); RBC 5.47 m/uL (4.30-5.90); RDW 14.3 % (11.5-15.5); WBC 5.2 k/uL (3.8-10.6)
[2020-09-25 02:34] LABS: % Iron Saturation 23.64 (15.00-50.00); African American GFR (CKD) 135.2 (60.0-200.0); Albumin 4.4 g/dL (3.80-4.90); Albumin/Globulin Ratio 1.91 (1.60-3.17); Anion Gap 10.6 mmol/L (4.00-12.00); BUN/Creat Ratio 13.33 Ratio (12.00-20.00); Calcium 9.4 mg/dL (8.7-10.3); Carbon Dioxide 23.4 mmol/L (21.6-31.8); Globulin 2.3 g/dL (1.6-3.3); Non-African American GFR(CKD) 116.6 (60.0-200.0); Potassium 4.4 mmol/L (3.5-5.5); Total Bilirubin 0.6 mg/dL (0.2-1.2); Total Protein 6.7 g/dL (6.2-8.2)
[2020-09-25 02:45] LABS: Ferritin 193.4 ng/mL (22.0-322.0)
[2020-09-25 13:07] LABS: Zinc, Serum 83 ug/dL (60-130)
[2020-09-26 06:52] LABS: Vitamin A 55 ug/dL (38-106)
[2020-09-26 07:02] LABS: Vit B1(Thiamine) 56 ug/L (38-122)
[2020-09-27 23:57] LABS: Selenium 128 mcg/L (63-160)
--- NOTE | 2020-11-01 12:43 | P.HPBAR ---
Bariatric H&P - History & Physicial H&P Date: 09/24/20 History & Physicial: Visit/CC: f/u Patient initial contact: Initial weight: 208.652 kg Initial weight in pounds: 460.00 Height: 5 ft 6 in Initial BMI: 74.2 Last weight: Current weight: 163.293 kg Current weight in pounds: 360.00 Current BMI: 58.1 [place] body weight (based on NIH guidelines): 64.41 kg Excess body weight loss: 31.4% The patient is a 30 year-old M who presents for Bariatric Assessment. Patient presents today for sleeve gastrectomy fall. He's had excellent weight loss Past Medical History Past Medical History: Asthma Additional Past Medical History / Comment(s): Asthma as child. Recent elevated blood pressure x1. History of Any Multi-Drug Resistant Organisms: None Reported Past Surgical History: Bariatric Surgery Additional Past Surgical History / Comment(s): EGD. Gastric lap band 2010 lap band removed and sleeve gastrectomy 08-28-20 Past Anesthesia/Blood Transfusion Reactions: Postoperative Nausea & Vomiting (PONV) Additional Past Anesthesia/Blood Transfusion Reaction / Comm: (No transfusions to date). Awoke from surgery with broken blood vessels in face. Past Psychological History: No Psychological Hx Reported Smoking Status: Never smoker Past Alcohol Use History: Rare Past Drug Use History: None Reported - Past Family History Mother Family Medical History: No Reported History Surgical - Exam Vital Signs Temp Pulse Resp BP 98.2 F 87 16 125/89 09/24/20 13:58 09/24/20 13:58 09/24/20 13:58 09/24/20 13:58 - General well developed - Eyes PERRL - ENT normal pinna - Neck no masses - Respiratory normal expansion - Cardiovascular Rhythm: regular - Abdomen Abdomen: soft, non tender Results - Labs 09/24/20 15:12 09/24/20 15:12 Bariatric Assessment & Plan Plan: Status post sleeve gastrectomy. Patient is GERD is minimal will be observed. Bariatric Checklist Checklist: Plan: Checklist: EGD: 1. Hiatal hernia: 2. H. Pylori: HgbA1c: Vitamin D: Smoking: Never smoker Primary care physician referral: Dr. Woodard Psychiatry clearance: Cardiology clearance: Sleep study: Diet journal: VTE risk score: VTE risk level: Rehab needs at discharge:
== END | disposition home or self-care (01) ==
LOC: BARWHC3 13:36
PROVIDERS: ATTEND Surgery
DX: E66.01 Morbid (severe) obesity due to excess calories (principal); K21.9 Gastro-esophageal reflux disease without esophagitis; Z98.84 Bariatric surgery status; Z71.3 Dietary counseling and surveillance; Z68.43 Body mass index [BMI] 50.0-59.9, adult
CPT/HCPCS: 36415; 80053; 82306; 82607; 82728; 82746; 83540; 83550; 83735; 84255; 84425; 84443; 84590; 84630; 85027; 97803; 99211

== ENCOUNTER → 2020-10-22 | Outpatient (CLI) | payer BC ==
[2020-10-22 14:07] VITALS: BP 130/85; PULSE 80; RESP 18; TEMP 98.2; BMI 56.0
--- NOTE | 2020-10-22 16:23 | P.HPBAR ---
Bariatric H&P - History & Physicial H&P Date: 10/22/20 History & Physicial: Visit/CC: folllow up Patient initial contact: Initial weight: 208.652 kg Initial weight in pounds: 460.00 Height: 5 ft 6 in Initial BMI: 74.2 Last weight: Current weight: 157.397 kg Current weight in pounds: 347.00 Current BMI: 56.0 [place] body weight (based on NIH guidelines): 64.41 kg Excess body weight loss: 35.5% The patient is a 30 year-old M who presents for Bariatric Assessment. Patient presents for sleeve gastrectomy follow-up. He is doing quite well. He's had some mild GERD. Past Medical History Past Medical History: Asthma Additional Past Medical History / Comment(s): Asthma as child. Recent elevated blood pressure x1. History of Any Multi-Drug Resistant Organisms: None Reported Past Surgical History: Bariatric Surgery Additional Past Surgical History / Comment(s): EGD. Gastric lap band 2011 lap band removed and sleeve gastrectomy 08-28-20 Past Anesthesia/Blood Transfusion Reactions: Postoperative Nausea & Vomiting (PONV) Additional Past Anesthesia/Blood Transfusion Reaction / Comm: (No transfusions to date). Awoke from surgery with broken blood vessels in face. Past Psychological History: No Psychological Hx Reported Smoking Status: Never smoker Past Alcohol Use History: Rare Past Drug Use History: None Reported - Past Family History Mother Family Medical History: No Reported History Surgical - Exam Vital Signs Temp Pulse Resp BP 98.2 F 80 18 130/85 10/22/20 13:51 10/22/20 13:51 10/22/20 13:51 10/22/20 13:51 - General well developed, well nourished, no distress - Eyes PERRL - ENT normal pinna - Neck no masses - Respiratory normal expansion - Cardiovascular Rhythm: regular - Abdomen Abdomen: soft, non tender Bariatric Assessment & Plan Plan: Status post sleeve yesterday. Patient is minimal and will be observed. He'll follow-up in 4 weeks. Bariatric Checklist Checklist: Plan: Checklist: EGD: 1. Hiatal hernia: 2. H. Pylori: HgbA1c: Vitamin D: Smoking: Never smoker Primary care physician referral: Dr. Woodard Psychiatry clearance: Cardiology clearance: Sleep study: Diet journal: VTE risk score: VTE risk level: Rehab needs at discharge:
== END | disposition home or self-care (01) ==
LOC: BARWHC3 13:10
PROVIDERS: ATTEND Surgery
DX: E66.01 Morbid (severe) obesity due to excess calories (principal); Z98.84 Bariatric surgery status; Z68.45 Body mass index [BMI] 70 or greater, adult
CPT/HCPCS: 99211

== ENCOUNTER → 2020-11-26 | Outpatient (CLI) | payer BC ==
[2020-11-26 13:41] VITALS: BP 136/86; PULSE 63; RESP 18; TEMP 98.4; BMI 54.2
--- NOTE | 2020-11-26 15:36 | P.HPBAR ---
Bariatric H&P - History & Physicial H&P Date: 11/26/20 History & Physicial: Visit/CC: follow up Patient initial contact: Initial weight: 208.652 kg Initial weight in pounds: 460.00 Height: 5 ft 6 in Initial BMI: 74.2 Last weight: Current weight: 152.407 kg Current weight in pounds: 336.00 Current BMI: 54.2 [place] body weight (based on NIH guidelines): 64.41 kg Excess body weight loss: 38.9% The patient is a 30 year-old M who presents for Bariatric Assessment. Patient rents today for LAP-BAND full. He's had some mild GERD. He is an excellent weight loss. Past Medical History Past Medical History: Asthma Additional Past Medical History / Comment(s): Asthma as child. Recent elevated blood pressure x1. History of Any Multi-Drug Resistant Organisms: None Reported Past Surgical History: Bariatric Surgery Additional Past Surgical History / Comment(s): EGD. Gastric lap band 2011 lap band removed and sleeve gastrectomy 08-28-20 Past Anesthesia/Blood Transfusion Reactions: Postoperative Nausea & Vomiting (PONV) Additional Past Anesthesia/Blood Transfusion Reaction / Comm: (No transfusions to date). Awoke from surgery with broken blood vessels in face. Past Psychological History: No Psychological Hx Reported Smoking Status: Never smoker Past Alcohol Use History: Rare Past Drug Use History: None Reported - Past Family History Mother Family Medical History: No Reported History Surgical - Exam Vital Signs Temp Pulse Resp BP 98.4 F 63 18 136/86 11/26/20 13:38 11/26/20 13:38 11/26/20 13:38 11/26/20 13:38 - General well developed, well nourished, no distress - Eyes PERRL - ENT normal pinna - Neck no masses - Respiratory normal expansion - Abdomen Abdomen: soft, non tender Bariatric Assessment & Plan Plan: Status post gastric sleeve. Patient is GERD minimal will be observed. He'll follow-up 4 weeks.. Bariatric Checklist Checklist: Plan: Checklist: EGD: 1. Hiatal hernia: 2. H. Pylori: HgbA1c: Vitamin D: Smoking: Never smoker Primary care physician referral: Dr. Woodard Psychiatry clearance: Cardiology clearance: Sleep study: Diet journal: VTE risk score: VTE risk level: Rehab needs at discharge:
== END | disposition home or self-care (01) ==
LOC: BARWHC3 13:07
PROVIDERS: ATTEND Surgery
DX: E66.01 Morbid (severe) obesity due to excess calories (principal); K21.9 Gastro-esophageal reflux disease without esophagitis; Z98.84 Bariatric surgery status; Z68.43 Body mass index [BMI] 50.0-59.9, adult
CPT/HCPCS: 97803; 99211